=== PATIENT | female | born 1950 | race Caucasian/White ===

== ENCOUNTER 2016-11-17 21:37 | Inpatient (IN) | payer MEDICARE, OTHER ==
--- NOTE | ~2016-11-17 | CN ---
Consultation Report [facility] [address] [place]. [address] NAME: PRETTY STRINGER : 52 STATUS : ADM Racquel PAT#: [id number] AGE: 66 ADM/REG DATE : 11/17/16 MR#: [id number] REPORT SERV DATE: 11/20/16 DICTATED BY: STERLING ARNOLD DATE: 11/20/16 REPORT STATUS : Draft TRANSCRIBED BY: MODL DATE: 11/20/16 ELECTROPHYSIOLOGY CONSULTATION DATE OF CONSULTATION: 11/20/2016 INDICATIONS: Recurrent SVT. HISTORY OF PRESENT ILLNESS: Ms. Pretty Stringer is a very pleasant, 66-year-old, female with a long history of tachy palpitations with multiple previous emergency room visits including now 3 over the last week with recurrent SVT. She received adenosine 3 times in those settings, one at each of this ER visits. She describes it as sudden onset, tachy palpitations associated dizziness and weakness, no significant associated chest pain or shortness of breath. No syncope or presyncope. She had recent right knee surgery and had been on apixaban for that but it was stopped on the . PAST MEDICAL HISTORY: Hyperlipidemia, recent knee surgery, recurrent SVT. SOCIAL HISTORY: No smoking. No alcohol. Lives with her spouse. FAMILY HISTORY: Reviewed. Notable for coronary artery disease and hypertension. REVIEW OF SYSTEMS: As per the HPI. Otherwise, all other review of systems negative. PHYSICAL EXAMINATION: VITAL SIGNS: Blood pressure 116/68, pulse 52, respiratory rate is 12. GENERAL: Appears stated age, no distress. EYES: Sclerae anicteric, no arcus senilis. MOUTH: Oral mucosa moist, lips acyanotic. NECK: Jugular venous pressure normal, no carotid bruits. LUNGS: Clear to auscultation bilaterally, normal inspiratory effort. CARDIAC: Irregular rhythm with bradycardia, no murmurs, gallops or rubs. ABDOMEN: Soft, nondistended, nontender. EXTREMITIES: No edema. SKIN: Warm and dry. NEURO/PSYCH: Alert and oriented, nonfocal, mood appropriate. DATA: ECG from this morning is sinus bradycardia with right bundle-branch block conduction pattern. ECG from admission is SVT with a right bundle-branch block conduction pattern. LABORATORY DATA: Sodium 141, potassium 3.9, creatinine 0.68, hemoglobin 11.4. Troponin on presentation was negative. The patient reports echocardiogram at [facility] recently to be normal. Consultation Report [facility] [id number] [place]. [address] NAME: PRETTY STRINGER : 52 STATUS : ADM Racquel PAT#: [id number] AGE: 66 ADM/REG DATE : 11/17/16 MR#: [id number] REPORT SERV DATE: 11/20/16 DICTATED BY: STERLING ARNOLD DATE: 11/20/16 REPORT STATUS : Draft TRANSCRIBED BY: MODMiri DATE: 11/20/16 IMPRESSIONS: 1. Recurrent supraventricular tachycardia. 2. Recent right knee surgery. RECOMMENDATIONS: Discussed situation with the patient and . She has recurrent SVT despite treatment with metoprolol to the point of bradycardia. I have recommended consideration of EP study and ablation of her SVT process. We have addressed the rationale, logistics, and risks. Risks include, but not limited to bleeding, infection, vascular complications, myocardial infarction, stroke, cardiac perforation, possible conduction system injury, need for pacemaker, and risks related to transseptal puncture. All questions were answered and the patient has wished to proceed. We will keep patient n.p.o. and plan to proceed this afternoon. GKAntelmo/COREY Sterling Arnold M.D. / [id number] CC: MD Bridger Denton M.D.
--- NOTE | ~2016-11-17 | PRECARD ---
H&P [facility] [address] [place]. [address] NAME: LAITH STRINGER : 52 STATUS : ADM Racquel PAT#: [id number] AGE: 66 ADM/REG DATE : 11/17/16 MR#: [id number] REPORT SERV DATE: 11/18/16 DICTATED BY: NOAH SMITH DATE: 11/18/16 REPORT STATUS : Draft TRANSCRIBED BY: COREY DATE: 11/18/16 DATE OF ADMISSION: 11/17/2016 HISTORY OF PRESENT ILLNESS: Mrs. Kareen Stringer is a 66-year-old woman with palpitations. She describes palpitations now for several years. In the past, they had been controlled by Valsalva maneuver. They are coming on with increasing frequency. She has been treated with metoprolol with partial relief. She has had 4 episodes of palpitations this week. She has gone to [facility] ER three different times and came last night with palpitations again. She had SVT, rate about 160, she received adenosine bolus in the emergency room, she converted to sinus rhythm, and is now admitted. The palpitations occur randomly, sudden without warning. Again, four times in the last week, requiring presentation to the emergency room all four times. She feels much better now. She has a history of hypertension. No diabetes, stroke, or stroke-like symptoms. MEDICATIONS: Eliquis, Synthroid, metoprolol, Endocet, Mirapex, and Pravachol. SOCIAL HISTORY: No alcohol or tobacco. No longer working. REVIEW OF SYSTEMS: Complete review of systems was obtained, pertinent negative and unremarkable except as noted above and below. All systems addressed. PHYSICAL EXAMINATION: VITAL SIGNS: Blood pressure 130/60, heart rate 60 to 70. GENERAL: Comfortable, in no acute distress. HEENT: No xanthelasma; lips without cyanosis LUNGS: Clear to auscultation, no wheezes, rales or rhonchi; good breath sounds. COR: No JVD or hepatojugular reflux, no murmurs, rubs or gallops, impulse mid clavicular line without carotid or abdominal bruits; normal S1 and S2. ABDOMEN: Bowel sounds positive, normal activity, without tenderness, masses or hepatosplenomegaly. EXTREMITIES: No edema, cyanosis. SKIN: Normal turgor. Ms: Normal muscle strength, without kyphosis/scoliosis. NEURO/PSYCH: Alert and oriented times 4, no apparent anxiety or depression. LABORATORY DATA: BUN 14, creatinine 0.9, and glucose 124. CBC: Hematocrit 40.6, white count 7.9, and platelet count 336. EKG: Sinus rhythm, right bundle-branch block. EKG on presentation was SVT with right bundle-branch block. H&P [address] [address] NAME: LAITH STRINGER : 52 STATUS : ADM Racquel PAT#: [id number] AGE: 66 ADM/REG DATE : 11/17/16 MR#: [id number] REPORT SERV DATE: 11/18/16 DICTATED BY: NOAH SMITH DATE: 11/18/16 REPORT STATUS : Draft TRANSCRIBED BY: COREY DATE: 11/18/16 ASSESSMENT: Mrs. Stringer is a very nice 66-year-old woman who had recurrent palpitations on admission requiring presentations to the emergency room four different times this week. She is currently in sinus rhythm. She converted with adenosine 6 mg with SVT. I am not certain why she is on Eliquis. I will look to the medical records to see if I can find documented atrial fibrillation. PLAN: 1. We will keep in the hospital for now. 2. We will consult Electrophysiology. 3. Continue metoprolol. CELESTE/COREY Noah Smith M.D. / [id number] CC: MD LOYD DentonW. A.
[2016-11-17 21:29] LABS: BASOPHILS 0.3 %; BASOPHILS ABSOLUTE 0.02 10/3/uL (0.0-0.16); EOSINOPHILS 3.3 %; EOSINOPHILS ABSOLUTE 0.26 10/3/uL (0.0-0.53); HEMATOCRIT 40.6 % (36.0-48.0); HEMOGLOBIN 13.3 g/dL (12.0-16.0); IMMATURE GRANULOCYTES 0.4 %; IMMATURE GRANULOCYTES ABSOLUTE 0.03 10/3/uL (0.0-0.11); LYMPHOCYTES 32.7 %; LYMPHOCYTES ABSOLUTE 2.57 10/3/uL (0.67-4.30); MEAN CORPUS HGB CONC 32.8 g/dL (32.0-36.0); MEAN CORPUSCULAR HEMOGLOB 31.1 pg (26.0-34.0); MEAN CORPUSCULAR VOLUME 94.9 fL (80-100); MEAN PLATELET VOLUME 10.7 fL (9.2-13.0); MONOCYTES 10.7 %; MONOCYTES ABSOLUTE 0.84 10/3/uL (0.21-1.20); NEUTROPHILS 52.6 %; NEUTROPHILS ABSOLUTE 4.13 10/3/uL (2.02-8.40); PLATELET COUNT 336 10/3/uL (150-400); RED CELL COUNT 4.28 10/6/uL (4.0-5.6); WHITE BLOOD CELLS 7.9 10/3/uL (4.5-10.5)
[2016-11-17 21:31] LABS: MANUAL DIFF NO %
[2016-11-17 21:40] LABS: INTERNATIONAL NORMAL RATI 1.1 UNITS (-); PARTIAL THROMBO TIME 29.6 SEC (22.5-37.2); PROTIME (NOT ORD) 14.1 SEC (12.0-14.5)
[2016-11-17 21:43] LABS: BUN (BLOOD UREA NITROGEN) 14 MG/DL (6-23); CALCIUM, SERUM 9.1 MG/DL (8.5-10.4); CHEST PAIN PROFILE TAT 0 Hrs 20 Mins; CHLORIDE, SERUM 104 MMOL/L (96-112); CO2 (CARBON DIOXIDE) 30 MMOL/L (24-34); CREATININE 0.99 MG/DL (0.55-1.02); GFR AFRICAN AMERICAN 69 ML/MIN (>=60); GFR NON AFRICAN AMERICAN 60 ML/MIN (>=60); GLUCOSE, SERUM 124 MG/DL (60-99); POTASSIUM, SERUM 3.9 MMOL/L (3.5-5.3); SODIUM, SERUM 143 MMOL/L (135-148); TROPONIN I <0.02 NG/ML (<0.05)
[2016-11-18] MEDS ORDERED: LOP100 PO (01:23)
[2016-11-18] MEDS ORDERED: MIRAPEX1 MG PO (01:23)
[2016-11-18] MEDS ORDERED: SYN.05 PO (01:24)
[2016-11-18] MEDS ORDERED: PRAVAC PO (01:25)
[2016-11-18] MEDS ORDERED: ELIQUIS 2.5 MG2.5 MG PO (01:25)
[2016-11-18] MEDS ORDERED: ENDOCET1 TA3 PO (01:26)
[2016-11-19 06:57] LABS: BUN (BLOOD UREA NITROGEN) 9 MG/DL (6-23); CALCIUM, SERUM 8.9 MG/DL (8.5-10.4); CHLORIDE, SERUM 107 MMOL/L (96-112); CO2 (CARBON DIOXIDE) 28 MMOL/L (24-34); CREATININE 0.72 MG/DL (0.55-1.02); GFR AFRICAN AMERICAN 102 ML/MIN (>=60); GFR NON AFRICAN AMERICAN 88 ML/MIN (>=60); GLUCOSE, SERUM 114 MG/DL (60-99); POTASSIUM, SERUM 3.8 MMOL/L (3.5-5.3); SODIUM, SERUM 142 MMOL/L (135-148)
[2016-11-20 05:47] LABS: BASOPHILS 0.4 %; BASOPHILS ABSOLUTE 0.02 10/3/uL (0.0-0.16); EOSINOPHILS 5.6 %; EOSINOPHILS ABSOLUTE 0.31 10/3/uL (0.0-0.53); HEMOGLOBIN 11.4 g/dL (12.0-16.0); IMMATURE GRANULOCYTES 0.2 %; IMMATURE GRANULOCYTES ABSOLUTE 0.01 10/3/uL (0.0-0.11); LYMPHOCYTES 33.9 %; LYMPHOCYTES ABSOLUTE 1.88 10/3/uL (0.67-4.30); MEAN CORPUS HGB CONC 32.9 g/dL (32.0-36.0); MEAN CORPUSCULAR HEMOGLOB 30.7 pg (26.0-34.0); MEAN CORPUSCULAR VOLUME 93.5 fL (80-100); MEAN PLATELET VOLUME 10.2 fL (9.2-13.0); MONOCYTES 10.8 %; NEUTROPHILS 49.1 %; NEUTROPHILS ABSOLUTE 2.73 10/3/uL (2.02-8.40); PLATELET COUNT 277 10/3/uL (150-400); RBC DISTRIBUTION WIDTH 14.3 % (12.0-16.0); RED CELL COUNT 3.71 10/6/uL (4.0-5.6); WHITE BLOOD CELLS 5.6 10/3/uL (4.5-10.5)
[2016-11-20 05:53] LABS: HEMATOCRIT 34.7 % (36.0-48.0); MANUAL DIFF NO %
[2016-11-20 05:58] LABS: BUN (BLOOD UREA NITROGEN) 9 MG/DL (6-23); CALCIUM, SERUM 8.7 MG/DL (8.5-10.4); CHLORIDE, SERUM 106 MMOL/L (96-112); CO2 (CARBON DIOXIDE) 26 MMOL/L (24-34); CREATININE 0.68 MG/DL (0.55-1.02); GFR AFRICAN AMERICAN 106 ML/MIN (>=60); GFR NON AFRICAN AMERICAN 92 ML/MIN (>=60); GLUCOSE, SERUM 107 MG/DL (60-99); POTASSIUM, SERUM 3.9 MMOL/L (3.5-5.3); SODIUM, SERUM 141 MMOL/L (135-148)
[2016-11-20 06:03] LABS: INTERNATIONAL NORMAL RATI 1.1 UNITS (-); PROTIME (NOT ORD) 13.8 SEC (12.0-14.5)
== END 2016-11-20 20:57 | disposition home or self-care (01) | DRG 274 ==
LOC: ER 21:37 → 5NO 22:00
PROVIDERS: Emergency Medicine; Internal Medicine Cardiovascular Disease
PROC: 4A023FZ Measurement of Cardiac Rhythm, Percutaneous Approach (ICD-10-PCS; principal; 2016-11-20)
PROC: 02583ZZ Destruction of Conduction Mechanism, Percutaneous Approach (ICD-10-PCS; 2016-11-20)
PROC: 4A0234Z Measurement of Cardiac Electrical Activity, Percutaneous Approach (ICD-10-PCS; 2016-11-20)
PROC: 02K83ZZ Map Conduction Mechanism, Percutaneous Approach (ICD-10-PCS; 2016-11-20)
DX: I47.1 Supraventricular tachycardia (principal); I10 Essential (primary) hypertension; I45.10 Unspecified right bundle-branch block; E78.5 Hyperlipidemia, unspecified
CPT/HCPCS: 71010; 80048; 83735; 84484; 85025; 85610; 85730; 93005; 93613; 93621; 93653; 96374; 99285; A9270-GY; C1733; C1769; C1781; C1894; J0153; J0690; J1652; J2250; J3010